=== PATIENT | female | born 1940 | race Caucasian/White ===

== ENCOUNTER 2016-10-13 06:53 | Day surgery (SDC) | payer MEDICARE ==
[2016-10-05 09:25] LABS: HEMATOCRIT 44.1 % (36.0-48.0); HEMOGLOBIN 15.1 g/dL (12.0-16.0)
[2016-10-05 09:41] LABS: BUN (BLOOD UREA NITROGEN) 12 MG/DL (6-23); CHLORIDE, SERUM 108 MMOL/L (96-112); CO2 (CARBON DIOXIDE) 30 MMOL/L (24-34); CREATININE 0.88 MG/DL (0.55-1.02); GFR AFRICAN AMERICAN 75 ML/MIN (>=60); GFR NON AFRICAN AMERICAN 65 ML/MIN (>=60); GLUCOSE, SERUM 109 MG/DL (60-99); POTASSIUM, SERUM 4.1 MMOL/L (3.5-5.3); SODIUM, SERUM 143 MMOL/L (135-148)
[2016-10-05 10:14] LABS: ASCORBIC ACID (UR NOT ORDER) NEG (NEG); BILIRUBIN, URINE NEGATIVE (NEG); KETONE, URINE NEGATIVE (NEG); LEUKOCYTE ESTERASE(NOT OR TRACE (NEG); WBC (NOT ORDERED) (RFLEX) 10 (0-5)
--- NOTE | ~2016-10-13 | OP ---
Record Of Operation [facility] [address] [place]. [address] NAME: JOVANNY FARR OCTOBER : [birth year] STATUS : [facility]#: [id number] AGE: 76 ADM/REG DATE : 10/13/16 MR#: [id number] REPORT SERV DATE: 10/13/16 DICTATED BY: RIVAS OSUNA JR. DATE: 10/13/16 REPORT STATUS : Draft TRANSCRIBED BY: GIOVANNA DATE: 10/13/16 DATE OF PROCEDURE: 10/13/2016 SURGEON: Rivas Osuna M.D. PREOPERATIVE DIAGNOSIS: Urinary incontinence and urge incontinence. POSTOPERATIVE DIAGNOSIS: Urinary incontinence and urge incontinence. PROCEDURE PERFORMED: Cystoscopy and transvesical injection of Botox into the detrusor muscle. COMPLICATIONS: None. CONSULTATIONS: None. ANESTHESIA: General with a laryngeal mask airway. SPECIMENS: None. DRAINS: None. ESTIMATED BLOOD LOSS: None. INDICATION: Mrs. Farr is a 76-year-old female, who has had both urge and stress incontinence for quite some time. She has not been really interested in any sling procedures to re- support her urethra. She has tried several different anticholinergics as well as a prior Botox injection of 100 units. After discussing the options, she opted for a second injection of 200 units and she comes today for that procedure. PROCEDURE IN DETAIL: After proper informed consent was obtained, the patient was taken to the operating room, placed on the operating table. General anesthesia was performed without complication using a laryngeal mask airway. She was then prepped and draped in the normal sterile fashion in the lithotomy position. Cystoscopic examination was performed. She does have a grade 3 rectocele. The urethra was identified and cannulated with a 19-Nigerien cystoscope using the Botox injection needle. I then injected 200 units mixed in a 100 unit per 10 mL of normal saline concentration. I did 20 injections of 1 mL each in 2 rows, 10 on each row across the posterior bladder wall. The patient tolerated the procedure well. The cystoscope was removed. The bladder was drained. The patient was awakened in the operating room and transferred to the postanesthesia care unit in stable condition. I will see her back in the office for followup in the next few weeks to see how she has been doing. ONEIDA/GIOVANNA Record Of [place] [address]. [place]. [address] NAME: JOVANNY FARR : [birth year] STATUS : [facility] PAT#: [id number] AGE: 76 ADM/REG DATE : 10/13/16 MR#: [id number] REPORT SERV DATE: 10/13/16 DICTATED BY: RIVAS OSUNA JR. DATE: 10/13/16 REPORT STATUS : Draft TRANSCRIBED BY: MODL DATE: 10/13/16 Rivas Osuna Jr., M.D. / [id number] CC: Robyn Sales Jr., D.O.
[~2016-10-13 06:53] MED LIST: ASAB PO; BREO ELLIPTA INH; CLARIT10 PO; COREG12 PO; COZ50 PO; KLOR-CON 1010 MEQ PO; L40 PO; MICROZIDE PO; MOBIC15 MG PO; TOF25 PO
== END 2016-10-13 13:12 | disposition home or self-care (01) ==
LOC: SDC 06:53
PROVIDERS: Urology
PROC: 3E0K8GC Introduction of Other Therapeutic Substance into Genitourinary Tract, Via Natural or Artificial Opening Endoscopic (ICD-10-PCS; principal; 2016-10-13 09:00)
DX: N39.41 Urge incontinence (principal); N81.6 Rectocele; I10 Essential (primary) hypertension; E66.01 Morbid (severe) obesity due to excess calories; Z68.42 Body mass index [BMI] 45.0-49.9, adult; G47.33 Obstructive sleep apnea (adult) (pediatric); Z99.89 Dependence on other enabling machines and devices; Z85.038 Personal history of other malignant neoplasm of large intestine; Z88.5 Allergy status to narcotic agent; Z88.1 Allergy status to other antibiotic agents; Z79.82 Long term (current) use of aspirin; Z79.51 Long term (current) use of inhaled steroids; Z79.899 Other long term (current) drug therapy; Z96.1 Presence of intraocular lens; Z98.41 Cataract extraction status, right eye; Z98.42 Cataract extraction status, left eye; Z90.49 Acquired absence of other specified parts of digestive tract; Z90.710 Acquired absence of both cervix and uterus; Z98.890 Other specified postprocedural states
CPT/HCPCS: 80048; 81001; 85014; 85018; 93005; J0585; J2250; J2710; J3010